=== PATIENT | female | born 1955 | race Caucasian/White ===

== ENCOUNTER 2016-11-08 15:03 | Emergency (ER) | payer OTHER, MEDICARE ==
[~2016-11-08 15:03] MED LIST: AMBIEN10 MG PO; ASPIR LOW81 MG PO; COZAAR25 MG PO; CYMBALTA30 MG PO; EFFIENT10 MG PO; LIPITOR20 MG PO; PROPRANOLOL ER80 MG PO; SYNTHROID0.1 MG PO
[2016-11-08] MEDS ORDERED: MECLIZINE PO (16:04)
[2016-11-08] MEDS ORDERED: ZOFRAN ODT4 MG PO (16:04)
== END 2016-11-08 16:12 | disposition home or self-care (01) ==
LOC: ED 15:03
DX: H81.10 Benign paroxysmal vertigo, unspecified ear (principal)

== ENCOUNTER 2017-05-05 16:48 | Emergency (ER) | payer OTHER, MEDICARE ==
[~2017-05-05] VITALS: Ht 149.9 cm; Wt 58.6 kg
[~2017-05-05 16:48] MED LIST changes: +MECLIZINE PO; +ZOFRAN ODT4 MG PO
[2017-05-05] MEDS ORDERED: METOPROLOL SUCC25 M1 PO (16:55)
[2017-05-05 18:06] VITALS: BP 132/86
== END 2017-05-05 18:02 | disposition home or self-care (01) ==
LOC: ED 16:48
DX: K64.5 Perianal venous thrombosis (principal); K59.00 Constipation, unspecified; I51.9 Heart disease, unspecified; I10 Essential (primary) hypertension

== ENCOUNTER → 2019-04-01 | Outpatient (CLI) | payer MEDICARE, OTHER ==
[~2019-04-01] MED LIST changes: +METOPROLOL SUCC25 M1 PO
== END ==
LOC: PT 08:27
DX: Z01.818 Encounter for other preprocedural examination (principal)

== ENCOUNTER 2019-06-04 14:00 | Outpatient (RCR) | payer MEDICARE, OTHER | END 2019-07-15 | disposition still patient (30) | LOC: PT | DX: Z98.890 Other specified postprocedural states (principal) ==

== ENCOUNTER → 2020-07-21 | Outpatient (CLI) | payer MEDICARE, OTHER | LOC: MAMMO 13:41 | DX: Z12.31 Encounter for screening mammogram for malignant neoplasm of breast (principal) ==

== ENCOUNTER → 2020-07-21 | Outpatient (CLI) | payer MEDICARE, OTHER | LOC: RAD 13:42 → MAMMO 14:30 → RAD 14:30 | DX: Z13.820 Encounter for screening for osteoporosis (principal) ==

== ENCOUNTER → 2020-08-27 | Outpatient (CLI) | payer MEDICARE, OTHER | LOC: RAD 12:00 | DX: N63.20 Unspecified lump in the left breast, unspecified quadrant (principal) ==

== ENCOUNTER → 2020-09-07 | Outpatient (CLI) | payer MEDICARE, OTHER | LOC: LAB 10:35 | DX: N60.82 Other benign mammary dysplasias of left breast (principal) ==

== ENCOUNTER 2020-12-07 12:58 | Outpatient (RCR) | payer MEDICARE, OTHER | END 2021-03-07 | disposition home or self-care (01) | LOC: PT | DX: M54.2 Cervicalgia (principal) ==

== ENCOUNTER → 2021-06-28 | Outpatient (CLI) | payer MEDICARE, OTHER ==
[~2021-06-28] MED LIST changes: +AMLODIPINE BESYL5 MG PO; +AMOXICILLIN AND1 TA2 PO; +CYCLOBENZ5 MG PO; +LEVOTHYROXINE88 MCG PO; +ONDANSETRON HYDR4 MG PO
== END ==
LOC: LAB 10:40
DX: Z90.411 Acquired partial absence of pancreas (principal)

== ENCOUNTER 2021-07-07 22:13 | Emergency (ER) | payer MEDICARE, OTHER ==
[~2021-07-07] VITALS: Ht 160 cm; Wt 58.6 kg
[~2021-07-07 22:13] MED LIST changes: -AMLODIPINE BESYL5 MG PO; -AMOXICILLIN AND1 TA2 PO; -CYCLOBENZ5 MG PO; -LEVOTHYROXINE88 MCG PO; -ONDANSETRON HYDR4 MG PO
[2021-07-07] MEDS ORDERED: AMOXICILLIN AND1 TA2 PO (23:18)
[2021-07-07] MEDS ORDERED: ONDANSETRON HYDR4 MG PO (23:18)
[2021-07-07] MEDS ORDERED: AMLODIPINE BESYL5 MG PO (23:20)
[2021-07-07] MEDS ORDERED: CYCLOBENZ5 MG PO (23:21)
[2021-07-07] MEDS ORDERED: LEVOTHYROXINE88 MCG PO (23:32)
[2021-07-07 23:45] LABS: HEMATOCRIT 35.8 % (37.0-47.0); HEMOGLOBIN 11.5 g/dL (12.5-16.0); MEAN CELL VOLUME 96 fl (78-100); MEAN CORPUSCULAR HEMOGLOBIN 31 pg (27-31); MEAN CORPUSCULAR HGB CONC 32 g/dL (33-37); MEAN PLATELET VOLUME 8.5 fl (7.4-10.4); PLATELET COUNT 759 K/mm3 (130-400); RED BLOOD COUNT 3.72 M/mm3 (4.10-5.30); RED CELL DISTRIBUTION WIDTH 13.4 % (11.5-14.5)
[2021-07-07 23:48] LABS: ALBUMIN 4.1 g/dL (3.4-4.8)
[2021-07-07 23:49] LABS: POTASSIUM 3.8 mmol/L (3.5-5.1)
[2021-07-07 23:50] LABS: CALCIUM 9.6 mg/dL (8.3-10.5)
[2021-07-07 23:53] LABS: TOTAL BILIRUBIN 0.6 mg/dL (0.2-1.2)
[2021-07-07 23:54] LABS: WHITE BLOOD COUNT 22.3 K/mm3 (4.8-10.8)
[2021-07-08 00:09] LABS: LIPASE 36 U/L (8-78)
[2021-07-08 00:23] LABS: BAND 1 % (0-10); LYMPHOCYTE 7 % (20-51); NEUTROPHILS 83 % (42-75)
[2021-07-08 00:24] LABS: PH-URINE 7.5 (5.0 - 8.0); URINE APPEARANCE CLOUDY; URINE COLOR YELLOW
[2021-07-08 00:24] LABS: MONOCYTE 9 % (3-10); POLYCHROMASIA 1+
[2021-07-08 00:25] LABS: URINE BILIRUBIN NEGATIVE (NEGATIVE); URINE BLOOD TRACE (NEGATIVE); URINE GLUCOSE NEGATIVE (NEGATIVE); URINE KETONE NEGATIVE (NEGATIVE); URINE LEUKOCYTE ESTERASE NEGATIVE (NEGATIVE); URINE NITRATE NEGATIVE (NEGATIVE); URINE PROTEIN(semi-quant) TRACE mg/dL (NEGATIVE); URINE UROBILINOGEN NORMAL (NORMAL); URINE WBC 0-1 /hpf (0-3)
[2021-07-08 00:26] LABS: URINE MUCUS PRESENT (NOT PRESENT)
[2021-07-08 08:33] VITALS: BP 139/78
== END 2021-07-08 08:35 | disposition short-term general hospital (02) ==
LOC: ED 22:13
PROVIDERS: Physician Assistant
DX: A41.9 Sepsis, unspecified organism (principal); K68.11 Postprocedural retroperitoneal abscess; I10 Essential (primary) hypertension; E03.9 Hypothyroidism, unspecified; I25.10 Atherosclerotic heart disease of native coronary artery without angina pectoris; Z20.822 Contact with and (suspected) exposure to COVID-19; Z79.82 Long term (current) use of aspirin; Z79.890 Hormone replacement therapy; Z79.899 Other long term (current) drug therapy
CPT/HCPCS: J2405; J2543; J7030; Q9967

== ENCOUNTER → 2021-11-08 | Day surgery (SDC) | payer MEDICARE, OTHER ==
[~2021-11-08] MED LIST changes: +AMLODIPINE BESYL5 MG PO; +AMOXICILLIN AND1 TA2 PO; +CYCLOBENZ5 MG PO; +LEVOTHYROXINE88 MCG PO; +ONDANSETRON HYDR4 MG PO
== END | disposition home or self-care (01) ==
LOC: MSO 07:24
DX: Z12.11 Encounter for screening for malignant neoplasm of colon (principal); I25.10 Atherosclerotic heart disease of native coronary artery without angina pectoris; I10 Essential (primary) hypertension; Z95.5 Presence of coronary angioplasty implant and graft
CPT/HCPCS: G0121; 00812; J2704; J7120

== ENCOUNTER → 2022-07-21 | Outpatient (CLI) | payer MEDICARE, OTHER | LOC: MAMMO 05-25 10:00 | DX: Z12.31 Encounter for screening mammogram for malignant neoplasm of breast (principal) ==

== ENCOUNTER → 2022-07-21 | Outpatient (CLI) | payer MEDICARE, OTHER | LOC: MAMMO 05-25 10:45 → RAD 09:19 → MAMMO 10:00 → RAD 10:00 | DX: Z13.820 Encounter for screening for osteoporosis (principal); M85.88 Other specified disorders of bone density and structure, other site; M81.0 Age-related osteoporosis without current pathological fracture ==

== ENCOUNTER → 2023-10-04 | Outpatient (CLI) | payer MEDICARE, OTHER ==
[~2023-10-04] MED LIST changes: +PAXLOVID CO-PA1 EACH PO
== END ==
LOC: MAMMO 10:55
DX: Z12.31 Encounter for screening mammogram for malignant neoplasm of breast (principal)